=== PATIENT | female | born 1955 | race Caucasian/White ===

== ENCOUNTER → 2019-05-15 14:44 | Outpatient (CLI) | payer OTHER, SELFPAY ==
--- NOTE | 2019-05-15 14:50 | RAD_ITS ---
HISTORY: CHRONIC BACK PAIN EXAM/TECHNIQUE: XR Spine Lumbar 2 or 3 Views: COMPARISON: None. FINDINGS: # of images incl. paperwork: 3 No fracture or dislocation or osseous destruction. Alignment anatomic. Moderate facet degeneration L4-5 and L5-S1. No acute findings in the soft tissues. RAD/Lumbar Spine 2 or 3 Views IMPRESSION: No acute findings. Moderate facet degeneration L4-5 and L5-S1. at 1523 Reported and signed by: Robson Blank MD Electronically Signed: Robson Blank, at 15:22 EDT Tel , Service support ,
== END ==
PROVIDERS: Family Provider Internal Medicine Infectious Disease; PCP Internal Medicine Infectious Disease; Referring Provider Anesthesiology Pain Medicine; Visit Provider Anesthesiology Pain Medicine
DX: M46.96 Unspecified inflammatory spondylopathy, lumbar region (principal)
CPT/HCPCS: 72100

== ENCOUNTER → 2019-07-11 06:30 | Outpatient (CLI) | payer OTHER, SELFPAY ==
--- NOTE | 2019-07-11 06:35 | MRI_ITS ---
STUDY: MRI LUMBAR SPINE WITHOUT CONTRAST REASON FOR EXAM: Female, 64 years old. Low back pain, hip pain, left more than right. TECHNIQUE: Standardized fat and water weighted pulse sequences were obtained in the sagittal and axial planes. COMPARISON: Lumbar spine radiographs 05/15/2019. FINDINGS: T11-T12: (Sagittal only). Normal endplates. Normal disc height, hydration and morphology. No ventral extradural defect. Normal central canal and bilateral intervertebral neural foramina. T12-L1: (Sagittal only). Normal endplates. Normal disc height, hydration and morphology. No ventral extradural defect. Normal central canal and bilateral intervertebral neural foramina. Normal lumbar lordosis. There is no substantial scoliosis. Normal conus medullaris that terminates at the lower L1 vertebral body level. L1-2: Normal endplates. Normal disc height, hydration and morphology. Normal bilateral facet joints. Normal central canal and bilateral lateral recesses. Normal bilateral intervertebral neural foramina. L2-3: Normal endplates. Normal disc height, hydration and morphology. Normal bilateral facet joints. Normal central canal and bilateral lateral recesses. Normal bilateral intervertebral neural foramina. L3-4: Normal endplates. Normal disc height, hydration and morphology. Normal bilateral facet joints. Normal central canal and bilateral lateral recesses. Normal bilateral intervertebral neural foramina. L4-5: Normal endplates. Mild disc space height narrowing. Mild degenerative anterolisthesis of L4 on L5. Small posterior annular bulging disc. Normal central canal and bilateral lateral recesses. Moderate bilateral degenerative facet arthropathy. Normal bilateral intervertebral neural foramina. L5-S1: Normal endplates. Normal disc height, hydration and morphology. Normal bilateral facet joints. Normal central canal and bilateral lateral recesses. Normal bilateral intervertebral neural foramina. Normal visualized sacral ala. Normal visualized paraspinous soft tissue structures. MRI/Spine Lumbar (Routine) IMPRESSION: 1. No MRI evidence of lumbar extruded disc fragment, spinal stenosis or nerve root displacement. 2. Moderate bilateral L4-L5 degenerative facet arthropathy with mild degenerative anterolisthesis of L4 on L5 and small posterior annular bulging disc. Electronically Signed: Gaurang Corral MD at 12:10 EDT , Service support ,
== END ==
PROVIDERS: Family Provider Internal Medicine Infectious Disease; PCP Internal Medicine Infectious Disease; Referring Provider Anesthesiology Pain Medicine; Visit Provider Anesthesiology Pain Medicine
DX: M43.16 Spondylolisthesis, lumbar region (principal); M46.86 Other specified inflammatory spondylopathies, lumbar region; M79.606 Pain in leg, unspecified
CPT/HCPCS: 72148